=== PATIENT | female | born 1965 | race Caucasian/White ===

== ENCOUNTER 2017-08-06 06:08 | Emergency (ER) | payer BC, OTHER ==
[~2017-08-06] VITALS: Ht 165.1 cm; Wt 65.5 kg
[~2017-08-06 06:08] MED LIST: DOCU-144 PO
[2017-08-06 06:51] VITALS: Ht 165.1 cm; Wt 65.5 kg
[2017-08-06] MEDS ORDERED: CLOT30CR24 TOP (07:19)
--- NOTE | 2017-08-06 09:18 | ERD ---
ER Documentation Chief Complaint Date/Time DATE: 08/06/17 TIME: 09:16 Chief Complaint RASH STARTING ON HANDS AND GENERALIZED TO BODY X2 WEEKS HPI 52-year-old female complaining of rash to left dorsal hand. Patient's been there for 2 weeks she has been applying cortisone cream and rashes gotten worse. She states the rash is very itchy. She itches it so hard sometimes it bleeds. Has never had this before. No one at home has similar rash. Denies fever. Is right-hand dominant. ROS All systems reviewed and are negative except as per history of present illness. Medications Home Meds Active Scripts Clotrimazole* (Clotrimazole* AF) 1% - 30 Gm Cream.gm., 1 APPLIC TOP BID for 7 Days, TUB Prov:CARINA FELDMAN PA-C 08/06/17 Docusate Sodium* (Colace*) 100 Mg Capsule, 100 MG PO BID, #30 CAP 0 Refills Prov:DELFINA YANEZ PA-C 11/13/15 Allergies Allergies: Coded Allergies: No Known Allergy (Unverified , 11/13/15) PMhx/Soc History of Surgery: No Anesthesia Reaction: No Hx Neurological Disorder: No Hx Respiratory Disorders: No Hx Cardiac Disorders: No Hx Psychiatric Problems: No Hx Miscellaneous Medical Probl: Yes (HEMORRHOID) Hx Alcohol Use: No Hx Substance Use: No Hx Tobacco Use: No Smoking Status: Current every day smoker Physical Exam Vitals Vital Signs Date Time Temp Pulse Resp B/P Pulse Ox O2 Delivery O2 Flow Rate FiO2 08/06/17 06:51 98.1 66 16 131/79 99 Physical Exam GENERAL: The patient is well-appearing, well-nourished, in no acute distress CHEST: Clear to auscultation bilaterally. There are no rales, wheezes or rhonchi. HEART: Regular rate and rhythm. No murmurs, clicks, rubs or gallops. No S3 or S4. EXTREMITIES: Equal pulses bilaterally. There is no peripheral clubbing, cyanosis or edema. No focal swelling or erythema. Full range of motion. Grossly neurovascularly intact. NEUROLOGIC: Alert and oriented. Cranial nerves II through XII intact. Motor strength in all 4 extremities with 5 out of 5 strength. Sensation grossly intact. Normal speech and gait. Babinski negative. DTR 2+ throughout. SKIN: Erythematous patch noted on the left dorsal hand. Approximately 2 cm x 3 cm inside. Slightly elevated erythema. No vesicles. No purulence. No bleeding. Procedures/MDM MDM: 52-year-old female complaining of rash to left dorsal hand. I have low suspicion for bacterial infection. I have low suspicion for parasitic infection. Patient's rash appears to be fungal and will be treated with antifungal medication. Patient is told if symptoms change or worsen to return to ER. Patient is also recommended to have close follow-up within 1-2 days for close evaluation with PMD. All questions answered at discharge Departure Diagnosis: Primary Impression: Ringworm Condition: Stable Patient Instructions: Ringworm, Skin Referrals: [facility] MD Additional Instructions: FOLLOW UP WITH YOUR PRIMARY CARE PHYSICIAN TOMORROW.Return to this facility if you are not improving as expected. CARINA FELDMAN PA-C Aug 06, 2017 09:18
== END 2017-08-06 07:46 | disposition home or self-care (01) ==
LOC: FTE 06:08
DX: B35.9 Dermatophytosis, unspecified (principal); F17.210 Nicotine dependence, cigarettes, uncomplicated
CPT/HCPCS: 99283

== ENCOUNTER 2018-08-02 07:59 | Emergency (ER) | END 2018-08-02 09:52 | disposition home or self-care (01) ==